=== PATIENT | female | born 1990 | race American Indian/Alaskan Native ===

== ENCOUNTER → 2018-08-23 | Outpatient (CLI) | payer BC ==
[2017-03-30 10:58] VITALS: BMI 27.1
[~2018-08-23] MED LIST: CLOB15OI16 TP; DOCU240C67 PO; FERR-53 PO; HYDR-3072 PO; IBUP800T37 PO; LOR5/325 PO; PRE20 PO; PREN-127 PO
== END ==
LOC: LAB 14:04
PROVIDERS: ATTEND Advanced Practice Midwife
DX: N76.0 Acute vaginitis (principal)
CPT/HCPCS: 87210